=== PATIENT | male | born 1985 | race Caucasian/White ===

== ENCOUNTER → 2022-07-05 13:14 | Outpatient (CLI) | payer MEDICARE, SELFPAY | PROVIDERS: PCP Emergency Medicine; Visit Provider Specialist | DX: G47.33 Obstructive sleep apnea (adult) (pediatric) (principal); R06.83 Snoring | CPT/HCPCS: 95806 ==

== ENCOUNTER → 2022-09-28 08:30 | Outpatient (CLI) | payer MEDICARE, SELFPAY ==
[2022-09-28 13:54] LABS: Alanine Aminotransferase 79 U/L (12-78); Albumin Level 4.9 g/dl (3.5-5.0); Albumin/Globulin Ratio 2.3 (1.1-1.8); Alkaline Phosphatase 55 U/L (38-126); Anion Gap 10.8 mEq/L (5-15); Aspartate Amino Transferase 46 U/L (17-59); Bilirubin,Total 0.6 mg/dl (0.2-1.3); Blood Urea Nitrogen 11 mg/dl (9-20); Calcium 9.4 mg/dl (8.4-10.2); Carbon Dioxide 28 mmol/L (22.0-30.0); Chloride 105 mmol/L (98-107); Chol/HDL Ratio 4.7 (1-3.5); Cholesterol 247 mg/dl (140-200); Estimated Glomerular Filt Rate 126 ml/min (>60); GFR (African American) 153 ML/MIN (>60); Globulin 2.1 g/dL (1.3-3.2); Glucose 95 mg/dl (74-100); HDL Cholesterol 53 mg/dl (40-60); Potassium 3.8 mmoL/L (3.5-5.1); Sodium 140 mmol/L (136-145); Triglycerides 245 mg/dl (30-150); VLDL Cholesterol 49 mg/dL (0-40)
[2022-09-28 13:55] LABS: Basophils # 0.1 K/mm3 (0-0.2); Eosinophils # 0.1 K/mm3 (0.0-0.4); Eosinophils % 2.2 % (0.1-12.0); Hematocrit 47.3 % (42.0-52.0); Hemoglobin 14.5 g/dL (14.1-18.0); Lymphocytes # 2.1 K/mm3 (0.7-4.5); Lymphocytes % 34.1 % (10-50); Mean Corpuscular HGB Conc 30.6 g/dL (31.8-35.4); Mean Corpuscular Hemoglobin 29.8 pg (27.0-31.2); Mean Corpuscular Volume 97.3 fl (80-94); Mean Platelet Volume 8.7 fl (7.4-10.4); Monocytes # 0.3 K/mm3 (0.1-1.0); Monocytes % 5.2 % (1.7-9.3); Neutrophils # 3.5 K/mm3 (1.8-7.8); Neutrophils % 57.4 % (37.0-80.0); Platelet Count 263 K/mm3 (142-424); Red Blood Count 4.86 M/mm3 (4.60-6.20); Red Cell Distribution Width 13.3 % (11.5-17.5); White Blood Count 6.1 K/mm3 (4.8-10.8)
[2022-09-28 14:05] LABS: Direct LDL Cholesterol 168.16 mg/dL (100-129)
[2022-09-28 14:12] LABS: Free T4 (Free Thyroxine) 1.19 ng/dl (0.78-2.19)
[2022-09-28 14:13] LABS: 25-OH Vitamin D, Total 25.3 ng/mL (30-100)
[2022-09-29 13:11] LABS: Lithium (Eskalith(R)) 0.3 mmol/L (0.5-1.2)
== END ==
PROVIDERS: PCP Emergency Medicine; Visit Provider Emergency Medicine
DX: I10 Essential (primary) hypertension (principal); E55.9 Vitamin D deficiency, unspecified; F31.9 Bipolar disorder, unspecified; J44.9 Chronic obstructive pulmonary disease, unspecified; E66.9 Obesity, unspecified; Z68.32 Body mass index [BMI] 32.0-32.9, adult
CPT/HCPCS: 80053; 80061; 80178; 82306; 84439; 84443; 85025

== ENCOUNTER → 2022-10-27 07:40 | Outpatient (CLI) | payer MEDICARE, SELFPAY ==
--- NOTE | 2022-10-27 07:41 | CA_ITS ---
FINAL REPORT CLINICAL HISTORY: HTN,HLD FINDINGS: DOPPLER RENAL VESSELS Intrarenal resistive indices on the right are 0.63-0.71, normal . Intrarenal resistive indices on the left are 0.60-0.67, normal . Right main renal artery systolic velocity: 157 cm/sec. Aortic-right renal artery flow velocity ratio: 1.22 COMMENT: No evidence of hemodynamically significant renal artery stenosis . Left main renal artery systolic velocity: 165 cm/sec. Aortic-left renal artery flow velocity ratio: 1.28 COMMENT: No evidence of hemodynamically significant renal artery stenosis . Incidental note is made of fatty infiltration of the liver. CONCLUSION: No evidence of hemodynamically significant renal artery stenosis CTA or gadolinium-enhanced MR may be considered as a more sensitive exam. Alternatively noncontrast MRI may be considered for assessing main renal arteries for stenosis as a more sensitive exam if the patient has renal insufficiency. Fatty infiltration of the liver. Reviewed, Interpreted and Dictated by Trisha Rogel MD Transcribed by Trang Elkins Authenticated and [facility]
== END ==
LOC: RT 07:41
PROVIDERS: PCP Emergency Medicine; Visit Provider Nurse Practitioner Family
DX: I10 Essential (primary) hypertension (principal)
CPT/HCPCS: 93976

== ENCOUNTER 2023-06-27 17:47 | Outpatient (CLI) | payer MEDICARE, SELFPAY ==
[2023-06-27 18:58] LABS: Cholesterol 246 mg/dl (140-200); HDL Cholesterol 62 mg/dl (40-60); Triglycerides 142 mg/dl (30-150); VLDL Cholesterol 28 mg/dL (0-40)
[2023-06-27 19:09] LABS: Direct LDL Cholesterol 151.46 mg/dL (100-129)
[2023-06-27 19:43] LABS: 25-OH Vitamin D, Total 30.9 ng/mL (30-100)
[2023-06-29 08:24] LABS: Lithium (Eskalith(R)) 0.3 mmol/L (0.5-1.2)
== END 2023-06-27 23:59 ==
LOC: LAB.DROPOF 17:48
PROVIDERS: PCP Internal Medicine; Visit Provider Internal Medicine
DX: E78.5 Hyperlipidemia, unspecified (principal); F31.9 Bipolar disorder, unspecified; E55.9 Vitamin D deficiency, unspecified
CPT/HCPCS: 80061; 80178; 82306

== ENCOUNTER 2023-10-25 11:13 | Outpatient (CLI) | payer MEDICARE, SELFPAY ==
[2023-10-27 11:19] LABS: Lithium (Eskalith(R)) 0.2 mmol/L (0.5-1.2)
== END 2023-10-25 23:59 | disposition home or self-care (01) ==
PROVIDERS: PCP Internal Medicine; Visit Provider Internal Medicine
DX: Z79.899 Other long term (current) drug therapy (principal); Z51.81 Encounter for therapeutic drug level monitoring
CPT/HCPCS: 80178

== ENCOUNTER 2024-10-09 09:15 | Outpatient (CLI) | payer MEDICARE, SELFPAY ==
[2024-10-09 18:26] LABS: Basophils # 0.1 K/mm3 (0-0.2); Basophils % 0.8 % (0.1-2.0); Eosinophils # 0.2 Kmm3 (0.0-0.4); Eosinophils % 2.2 % (0.1-12.0); Hematocrit 43.7 % (42.0-52.0); Hemoglobin 14.1 g/dL (14.1-18.0); Lymphocytes # 2.1 K/mm3 (0.7-4.5); Lymphocytes % 25.1 % (10-50); Mean Corpuscular HGB Conc 32.3 g/dL (31.8-35.4); Mean Corpuscular Hemoglobin 31.3 pg (27.0-31.2); Mean Corpuscular Volume 97.1 fl (80-94); Mean Platelet Volume 10.3 fl (7.4-10.4); Monocytes # 0.5 K/mm3 (0.1-1.0); Monocytes % 6.1 % (1.7-9.3); Neutrophils # 5.5 K/mm3 (1.8-7.8); Neutrophils % 65.6 % (37.0-80.0); Nucleated Red Blood Cells # 0 10^3/uL; Nucleated Red Blood Cells % 0 %; Platelet Count 233 K/mm3 (142-424); Red Cell Distribution Width 12.8 % (11.5-17.5); Red Cell Distribution Width-SD 45.5 fL; White Blood Count 8.3 K/mm3 (4.8-10.8)
[2024-10-09 19:00] LABS: 25-OH Vitamin D, Total 19.7 ng/mL (30-100)
[2024-10-09 19:35] LABS: Hemoglobin A1C 4.8 % (4.0-6.0)
[2024-10-09 20:02] LABS: Albumin Level 4.6 g/dl (3.5-5.0); Chloride 104 mmol/L (98-107)
[2024-10-09 20:03] LABS: Potassium 4.3 mmoL/L (3.5-5.1); Sodium 140 mmol/L (136-145)
[2024-10-09 20:05] LABS: Alanine Aminotransferase 52 U/L (12-78); Anion Gap 14.3 mEq/L (5-15); Aspartate Amino Transferase 30 U/L (17-59); Blood Urea Nitrogen 15 mg/dl (9-20); Carbon Dioxide 26 mmol/L (22.0-30.0); Estimated Glomerular Filt Rate 107 ml/min (>60); GFR (African American) 130 ML/MIN (>60)
[2024-10-09 20:06] LABS: Albumin/Globulin Ratio 2.4 (1.1-1.8); Alkaline Phosphatase 47 U/L (38-126); Bilirubin,Total 0.3 mg/dl (0.2-1.3); Calcium 9.5 mg/dl (8.4-10.2); Chol/HDL Ratio 3.4 (1-3.5); Cholesterol 229 mg/dl (140-200); Globulin 1.9 g/dL (1.3-3.2); Glucose 100 mg/dl (74-100); HDL Cholesterol 67 mg/dl (40-60); Total Protein,Serum 6.5 g/dl (6.3-8.2); Triglycerides 189 mg/dl (30-150); VLDL Cholesterol 38 mg/dL (0-40)
[2024-10-09 20:17] LABS: Direct LDL Cholesterol 135.36 mg/dL (100-129)
[2024-10-09 20:37] LABS: Thyroid Stimulating Hormone 2.32 uIU/mL (0.465-4.68)
== END 2024-10-09 23:59 | disposition home or self-care (01) ==
LOC: LAB.DROPOF 10-10 09:31
PROVIDERS: PCP Family Medicine; Visit Provider Family Medicine
DX: Z13.1 Encounter for screening for diabetes mellitus (principal); E78.5 Hyperlipidemia, unspecified; I10 Essential (primary) hypertension; E66.9 Obesity, unspecified; F17.200 Nicotine dependence, unspecified, uncomplicated; E55.9 Vitamin D deficiency, unspecified; Z68.34 Body mass index [BMI] 34.0-34.9, adult
CPT/HCPCS: 80053; 80061; 82306; 83036; 84443; 85025

== ENCOUNTER 2025-02-07 11:39 | Outpatient (CLI) | payer MEDICARE, SELFPAY ==
--- OUTSIDE RECORDS SUMMARY | 2025-02-07 11:40 | XMS_ITS ---
Author Name Auto Generated, Auto Generated Organization [facility] Address [address] [place] [address] Phone [phone] Care Team Providers Care Fur Dressing Supervisor Name Role Phone Gino Rocha Unavailable [phone] Functional Status No Results Mental Status No Results Allergies and Intolerances No Known Allergies Medications Medication Directions Start Date End Date buprenorphine 8 mg-naloxone 2 mg sublingual tablet 2 TABLET, SUBLINGUAL Sublingual Every 1 Day Indication: Opioid use disorder MonJan 24 01:00:00 EDT 2022Jun 08 00:00:00 EST 2022 Problems No Known Problems Reason for Referral
--- OUTSIDE RECORDS SUMMARY | 2025-02-07 11:40 | XMS_ITS ---
Author Name Auto Generated, Auto Generated Organization [facility] Address [address] [place] [address] Phone [phone] Care Team Providers Care Preschool Adviser Name Role Phone Gino Rocha Unavailable [phone] Functional Status No Results Mental Status No Results Allergies and Intolerances No Known Allergies Medications Medication Directions Start Date End Date buprenorphine 8 mg-naloxone 2 mg sublingual tablet 2 TABLET, SUBLINGUAL Sublingual Every 1 Day Indication: Opioid use disorder MonJan 24 01:00:00 EDT 2022Jun 08 00:00:00 EST 2022 Problems No Known Problems Reason for Referral
--- OUTSIDE RECORDS SUMMARY | 2025-02-07 11:41 | XMS_ITS | Encounter Summary ---
Author Organization [facility] Address [address] [place] [address] Care Team Providers Care Blood Tester Name Role Phone Quita Shukla MD Primary Care Provi cristobal Reason for Visit * Reason Comments Med Refill Encounter Details Date Type Department Care Team (Late st Contact Info) Description 11/18/2021 Refill [facility] [address] [address] Quita Shukla MD [address] [place] [address] Benign essential HTN Social History Tobacco Use Types Packs/Day Years Used Date Smoking Tobacco: Every Day Cigarettes 1 20 Smokeless Tobacco: Never Alcohol Use Standard Drinks/Week Comments Not Currently 0 (1 standard drink = 0.6 oz pur e alcohol) PHQ-2 Answer Date Recorded Retired Total Score 19 09/20/2021 Sex and Gender Information Value Date Recorded Sex Assigned at Not on file Legal Sex Male 11:56 AM EDT Gender Identity Not on file Sexual Orientation Not on file documented as of this encounter Plan of Treatment Not on file documented as of this encounter Visit Diagnoses Diagnosis Benign essential HTN documented in this encounter Additional Health Concerns Infection Onset Date Last Indicated Resolved Time COVID Screen (preop/placement) 12/29/2019 12/29/2019 08/10/2023 12:11 PM EST documented as of this encounter Care Teams Blood Tester Relationship Specialty Start Date End Date Quita Shukla MD [address] [place] [address] PCP - General Internal Medicine 01/18/16 07/11/22 documented as of this encounter
--- OUTSIDE RECORDS SUMMARY | 2025-02-07 11:41 | XMS_ITS | Encounter Summary ---
Author Organization [employer] ([place], [place], [place], [place]) Address [address] [place] [address] Care Team Providers Care Cylinder Block Mechanic Name Role Phone Unavailable Primary Care Provider Unavailabl e Encounter Details Date Type Department Care Team (Late st Contact Info) Description 11/30/2023 Outside Orders [facility] Scheduling [address] [place] [address] Ca Blanc APRN [address] [place] [address] Opiate dependence, continuous (HCC) (Primary Dx) Social History Tobacco Use Types Packs/Day Years Used Date Smoking Tobacco: Never Assessed Food Insecurity Answer Date Recorded Food run out past 12 months Not on file 12/17 Food did not last past 12 months Not on file 01/04/2024 Employment Answer Date Recorded Help finding and keeping a job Not on file 0 01/04/2024 Family and Community Support Answer Mckinley e Recorded Help with Day to Day Activities Not on file 01/04/2024 Feeling Lonely or Isolated Not on file 01/03 Educational Attainment Answer Date Jeramy rded Speak language other than Ukrainian at home Not on file 01/04/2024 Want help with school or training Not on file 01/04/2024 Substance Use Answer Date Recorded Used prescription meds for non-medical reasons N ot on file 01/04/2024 Used illegal drugs past 12 months Not on file 01/04/2024 Sex and Gender Information Value Date Recorded Sex Assigned at Not on file Legal Sex Male 4:51 PM CDT Gender Identity Not on file Sexual Orientation Not on file documented as of this encounter Plan of Treatment Not on file documented as of this encounter Visit Diagnoses Diagnosis Opiate dependence, continuous (HCC)- Primary documented in this encounter
--- OUTSIDE RECORDS SUMMARY | 2025-02-07 11:41 | XMS_ITS | Encounter Summary ---
Author Organization [facility] Address [address] [place] [address] Care Team Providers Care Correctional Agency Director Name Role Phone Quita Shukla MD Primary Care Provider Cristo Escobedo MD Primary Care Provider [phone] Encounter Details Date Type Department Care Team (Late st Contact Info) Description 03/12/2021 Community [facility] Community Practice [address] [place] [address] Yasmin Palacios MD [address] [facility] [address] [place] [address] SOLEDAD (obstructive sleep apnea) (Primary Dx) Social History Tobacco Use Types Packs/Day Years Used Date Smoking Tobacco: Every Day Smokeless Tobacco: Never Alcohol Use Standard Drinks/Week Comments Not Currently 0 (1 standard drink = 0.6 oz pur e alcohol) Sex and Gender Information Value Date Recorded Sex Assigned at Not on file Legal Sex Male 7:40 PM EDT Gender Identity Not on file Sexual Orientation Not on file documented as of this encounter Plan of Treatment Not on file documented as of this encounter Visit Diagnoses Diagnosis SOLEDAD (obstructive sleep apnea)- Primary Obstructive sleep apnea (adult) (pediatric) documented in this encounter Care Teams Correctional Agency Director Relationship Specialty Start Date End Date Quita Shukla MD [address] [facility] [address] [place] [address] PCP - General 10/30/20 07/07/22 Cristo Escobedo MD [address] [facility] [place] [address] PCP - General 07/08/22 documented as of this encounter
--- OUTSIDE RECORDS SUMMARY | 2025-02-07 11:41 | XMS_ITS | Referral Summary ---
Author Organization [employer] ([place], [place], [place]) Address [address] [place] [address] Care Team Providers Care Medication Nurse Name Role Phone Unavailable Primary Care Provider Unavailabl e Social History Tobacco Use Types Packs/Day Years [...] Date Jeramy rded Speak language other than Hungarian at home Not on file 01/04/2024 Want [...] on file Sexual Orientation Not on file Plan of Treatment Not on file
--- NOTE | 2025-02-07 11:42 | XR_ITS ---
FINAL REPORT TECHNIQUE: Chest PA & Lateral CLINICAL HISTORY: COPD, shortness of breath x 5 yrs, smoker x 30 yrs COMPARISON: None FINDINGS: 2 views of the chest were performed. The heart size is normal. The mediastinum is within normal limits. There is no acute cardiopulmonary process. There are no pleural effusions. There is no pneumothorax. The bony thorax appears intact. IMPRESSION: No acute cardiopulmonary process. Reviewed, Interpreted and Dictated by Velasquez Fritz MD Transcribed by Suzanne Avila Authenticated and . [facility]
--- OUTSIDE RECORDS SUMMARY | 2025-02-07 11:42 | XMS_ITS | Clinical Summary ---
Author Organization [facility] Address [address] [place] [address] Care Team Providers Care Engineering Equipment Operator Name Role Phone Unavailable Primary Care Provider Unavailabl e Allergies Active Allergy Reactions Criticality Noted Date Comments Fluticasone Unknown - High Severity 05/18/2021 Medications * This document contains information received from the source organization and may not represent a complete record from that organization. buprenorphine-nalo xone (SUBOXONE) 8-2 MG per SL tablet Place 1 tablet under the tongue Daily. Active ProAir HFA 108 (90 Base) MCG/ACT inhalerIndications :Chronic obstructive pulmonary disease, unspecified COPD type Inhale 2 puffs Every 4 (Four) Hours As Needed for Wheezing. 18 g 5 09/02/19 22 Active ondansetron ODT (ZOFRAN-ODT) [address] 1 tablet on the tongue Every 4 (Four) Hours. 12 tablet 09/17/19 22 Active albuterol (PROVENTIL) (2.5 MG/3ML) 0.083% nebulizer solutionIndication s:Chronic obstructive pulmonary disease, unspecified COPD type Take 2.5 mg by nebulization Every 4 (Four) Hours As Needed for Wheezing. 100 mL 12 09/29/19 22 Active mometasone (NASONEX) 50 MCG/ACT nasal sprayIndications:S easonal allergic rhinitis, unspecified trigger 2 sprays into the nostril(s) as directed by provider Daily. 17 g 11 10/12/19 22 Active risperiDONE (RisperDAL) 2 MG tablet Take 1 tablet by mouth Daily. 90 tablet 3 01/22/20 22 Active lithium 300 MG tabletIndications: Moderate persistent asthma without complication Take 1 tablet by mouth 2 (Two) Times a Day. 180 tablet 3 01/22/20 22 Active cloNIDine (CATAPRES) 0.1 MG tabletIndications: Anxiety TAKE 1 TABLET BY MOUTH EVERY NIGHT FOR 1 WEEK. INCREASE TO 1 TABLET 2 TIMES DAILY 60 tablet 2 01/22/20 22 Active buPROPion (WELLBUTRIN) 100 MG tablet Take 1 tablet by mouth 3 (Three) Times a Day. 90 tablet 5 01/22/20 22 Active lisinopril (PRINIVIL,ZESTRIL) 40 MG tabletIndications: Essential hypertension TAKE 1 TABLET BY MOUTH DAILY 30 tablet 3 04/14/20 22 Active Active Problems Problem Noted Date Diagnosed Date Moderate persistent asthma without complication 08/11/2021 Essential hypertension 09/26/2017 Bipolar 1 disorder 01/28/2016 Immunizations Immunization Administration Dates Next Due Tdap 11/18/2011 Family History Medical History Relation Name Comments ADD / ADHD Brother Bipolar disorder Brother Cancer Father Hypertension Father Bipolar disorder Mother Diabetes Mother Hyperlipidemia Mother Mental illness Mother COPD Other Cancer Other Chronic bronchitis Other Diabetes Other Emphysema Other Heart disease Other Hypertension Other Obesity Other Sleep apnea Other Relation Name Status Comments Brother Father Mother Other Social History Tobacco Use Types Packs/Day Years Used Date Smoking Tobacco: Every Day Cigarettes 1 20 Smokeless Tobacco: Never Alcohol Use Standard Drinks/Week Comments Not Currently 0 (1 standard drink = 0.6 oz pur e alcohol) PHQ-2 Answer Date Recorded Retired PHQ-9: Brief Depression Severity Measure Score 0 12/23/2021 Abuse Screen Answer Date Recorded Unsafe at Home or Work/School Not on file Feels Threatened by Someone? Not on file 02/2023 Does Anyone Keep You from Co ntacting Others or Doint Things Outside the Home? Not on file 03/27/2023 Physical Sign of Abuse Present Not on file 1 Housing Stability Answer Date Recorded Current Living Arrangements Not on file 02/2023 Potentially Unsafe Housing Conditions Not on jenni e 03/27/2023 Family and Community Support Answer Mckinley e Recorded Help with Day-to-Day Activities Not on file 03/27/2023 Lonely or Isolated Not on file 03/27/2023 Employment Answer Date Recorded Do you want help finding or keeping work or a heriberto b? Not on file 03/27/2023 Disabilities Answer Date Recorded Concentrating, Remembering, or Making Decisions Difficulty Not on file 03/27/2023 Doing Errands Independently Difficulty Not on fi le 03/27/2023 Education Answer Date Recorded Help with school or training? Not on file Preferred Language Not on file 03/27/2023 Sex and Gender Information Value Date Recorded Sex Assigned at Not on file Legal Sex Male 11:56 AM EDT Gender Identity Not on file Sexual Orientation Not on file Last Filed Vital Signs Vital Sign Reading Time Taken Comments Blood Pressure 136/82 01/21/2022 11:07 AM EDT Pulse 84 12/23/2021 1:22 PM EDT Temperature 36.1 C (96.9 F) 01/21/2022 11:07 AM EDT Respiratory Rate 16 12/23/2021 1:22 PM EDT Oxygen Saturation 96% 12/23/2021 1:22 PM EDT Inhaled Oxygen Concentration - - Weight 99.2 kg (218 lb 9.6 oz) 01/21/2022 11:07 AM EDT Height 175.3 cm (5' 9 ) 01/21/2022 11:07 AM EDT Body Mass Index 32.28 01/21/2022 11:07 AM EDT Plan of Treatment Health Maintenance Due Date Last Done Comments ANNUAL PHYSICAL 01/28/2016 HEPATITIS C SCREENING 01/28/2016 TDAP/TD VACCINES (2 - Td or Tdap) 11/17/2021 11/18/2011 COVID-19 Vaccine ( season) 2024 INFLUENZA VACCINE 03/19/2025 03/05/2014, , 03/27/2013, Additional history exists Pneumococcal Vaccine 0-49 Aged Out No longer eligible based on patient's age to complete this topic Insurance [employer] MEDICARE ADVANTAGE Member Subscriber Plan / Payer (Ef fective 2021-Present) Name:Buster Freedman Relation to Subscriber:Self Name:Buster Freedman Payer ID:[id number] (NAIC) Type:Medicare Replacement Address: [facility] [id number] [place] [phone]
--- OUTSIDE RECORDS SUMMARY | 2025-02-07 11:42 | XMS_ITS | Encounter Summary ---
Author Organization [facility] Address [address] [place] [address] Care Team Providers Care Silk Spooler Name Role Phone Quita Shukla MD Primary Care Provi cristobal Reason for Visit * Reason Comments Med Refill Encounter Details Date Type Department Care Team (Late st Contact Info) Description 03/20/2022 Refill [facility] [address] [address] Quita Shukla MD [address] [facility] [address] [place] [address] Social History Tobacco Use Types Packs/Day Years Used Date Smoking Tobacco: Every Day Cigarettes 1 20 Smokeless Tobacco: Never Alcohol Use Standard Drinks/Week Comments Not Currently 0 (1 standard drink = 0.6 oz pur e alcohol) PHQ-2 Answer Date Recorded Retired PHQ-9: Brief Depression Severity Measure Score 0 12/23/2021 Sex and Gender Information Value Date Recorded Sex Assigned at Not on file Legal Sex Male 11:56 AM EDT Gender Identity Not on file Sexual Orientation Not on file documented as of this encounter Plan of Treatment Not on file documented as of this encounter Visit Diagnoses Not on filedocumented in this encounter Additional Health Concerns Infection Onset Date Last Indicated Resolved Time COVID Screen (preop/placement) 12/29/2019 12/29/2019 08/10/2023 12:11 PM EST documented as of this encounter Care Teams Silk Spooler Relationship Specialty Start Date End Date Quita Shukla MD [address] [place] [address] PCP - General Internal Medicine 01/18/16 07/11/22 documented as of this encounter
--- OUTSIDE RECORDS SUMMARY | 2025-02-07 11:42 | XMS_ITS | Clinical Summary ---
Author Organization [employer] ([place], [place], [place], [place]) Address [address] [place] [address] Care Team Providers Care Pet Walker Name Role Phone Unavailable Primary Care Provider [...] Date Jeramy rded Speak language other than Maltese at home Not on file 01/04/2024 Want [...] Orientation Not on file Plan of Treatment Health Maintenance Due Date Last Done Comments Depression Screening (12+) 1996 Tobacco Cessation Counseling and Screening (12+) 1996 DTAP/TDAP/TD VACCINES (1 - Tdap) 08/23/2003 COVID-19 VACCINE (3 - 2023-2 5 season) 2024 06/03/2021, 03/18/2021 Influenza Vaccine (#1) 2025 Pneumococcal Vaccine: 0-49 Years Aged Out No longer eligible b ased on patient's age to complete this topic
--- OUTSIDE RECORDS SUMMARY | 2025-02-07 11:42 | XMS_ITS | Clinical Summary ---
Author Organization [facility] Address [address] [place] [address] Care Team Providers Care Support Engineer Name Role Phone Cristo Escobedo MD Primary Care Provider [phone] Allergies Active Allergy Reactions Criticality Noted Date Comments Umeclidinium-Vilanterol Other - please document in the comment field Low 03/01/2022 Lump in my throat and changes in my vision Fluticasone Fever,Headache,Runny nose,Shortness of breath,Swelling,Whee zing High 07/19/2019 Rywkqoglxru-Mbjppwnpu-I ilant Other - please document in the comment field Low 03/01/2022 Lump in my throat and changes in vision Medications lithium 300 MG tablet Take 600 mg by mouth every night. 03/24/2020 Active lisinopril 10 MG tablet Take 40 mg by mouth every night. 08/10/2017 Active buPROPion (Wellbutrin) 100 MG tablet Take 300 mg by mouth every night. 03/15/2018 Active albuterol 108 (90 Base) MCG/ACT inhaler Inhale 2 puffs if needed. 01/18/2020 Active docusate sodium (Colace) 100 MG capsule Take 100 mg by mouth every night. 01/26/2022 Active cloNIDine (Catapres) 0.1 MG tablet Take by mouth 2 (two) times a day. Active buprenorphine-n aloxone (Suboxone) 8-[address] 2 tablets under the tongue 1 (one) time each day. Active risperiDONE (RisperDAL) 2 MG tablet Take 2 mg by mouth every night. 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 05/10/2017 Mixed conductive and sensorineural hearing loss 05/10/2017 Bipolar 1 disorder 04/12/2006 Family History Medical History Relation Name Comments Cancer Father Rasta Freedman , heart cancer Heart disease Father Rasta Freedman , heart cance r Hypertension Father Rasta Freedman , heart cancer COPD Mother Bethany Eli Diabetes Mother Bethany Eli Drug abuse Mother Bethany Eli Relation Name Status Comments Father Rasta Freedman , heart cancer Mother Bethany Eli Social History Tobacco Use Types Packs/Day Years Used Date Smoking Tobacco: Every Day Cigarettes 1 15 Smokeless Tobacco: Never Tobacco Cessation:Ready to Q uit: Not Asked; Counseling Given: Not Answered Alcohol Use Standard Drinks/Week Comments Not Currently 0 (1 standard drink = 0.6 oz pur e alcohol) PHQ-2 Answer Date Recorded Patient Health Questionnaire-2 Score 0 03/01/2022 Sex and Gender Information Value Date Recorded Sex Assigned at Not on file Legal Sex Male 7:40 PM EDT Gender Identity Not on file Sexual Orientation Not on file Last Filed Vital Signs Vital Sign Reading Time Taken Comments Blood Pressure 162/103 07/08/2022 10:00 AM EST Pulse 79 07/08/2022 10:00 AM EST Temperature 36.8 C (98.2 F) 03/01/2022 7:52 AM EDT Respiratory Rate 18 03/01/2022 7:52 AM EDT Oxygen Saturation - - Inhaled Oxygen Concentration - - Weight 99.8 kg (220 lb) 07/08/2022 10:00 AM EST Height 175.3 cm (5' 9 ) 07/08/2022 10:00 AM EST Body Mass Index 32.49 07/08/2022 10:00 AM EST Plan of Treatment Health Maintenance Due Date Last Done Comments [facility]-Depression Screening 1984 [facility]-/Child/Adol SDOH Screenings 1984 [facility]-Varicella Vaccines (1 of 2 - 13+ 2-dose series) 1997 [facility]- SDOH Screenings 2002 [facility]-Adult SDOH Screenings 2002 [facility]-Hepatitis B Vaccines (1 of 3 - 19+ 3-dose series) 08/23/2003 HPV Vaccines (1 - 3-dose SCDM series) 08/23/2011 [facility]-DTaP,Tdap,and Td Vaccines (2 - Td or Tdap) 11/17/2021 11/18/2011 [id number] Vaccine (3 - season) 2024 06/03/2021, 03/18/2021 [facility]-Influenza Vaccine (#1) 2025 [facility]-Zoster Vaccines (1 of 2) 2034 [facility]-HIB Vaccines Aged Out No longer e ligible based on patient's age to complete this topic [facility]-Hepatitis A Vaccines Aged Out No longer eligible based on patient's age to complete this topic [facility]-IPV Vaccines Aged Out No longer e ligible based on patient's age to complete this topic [facility]-Pneumococcal Vaccine: Pediatrics (0 to 5 Years) and At-Risk Patients (6 to 49 Years) Aged Out No longer eligible b ased on patient's age to complete this topic [facility]-Rotavirus Vaccines Aged Out No lo nger eligible based on patient's age to complete this topic Insurance [employer] MEDICARE Care Teams Support Engineer Relationship Specialty Start Date End Date Cristo Escobedo MD [address] [place] [id number] (work) PCP - General 07/08/22
== END 2025-02-07 23:59 | disposition home or self-care (01) ==
LOC: RAD 11:40
PROVIDERS: PCP Internal Medicine; Visit Provider Internal Medicine
DX: R06.02 Shortness of breath (principal); J44.9 Chronic obstructive pulmonary disease, unspecified
CPT/HCPCS: 71046